=== PATIENT | female | born 1960 | race African-American/Black ===

== ENCOUNTER 2022-04-30 16:09 | Emergency (ER) | payer MEDICAID, OTHER ==
[~2022-04-30] VITALS: Ht 167.6 cm; Wt 101.0 kg
[2022-04-30 16:18] VITALS: BP 130/97
== END 2022-04-30 18:14 | disposition left against medical advice (07) ==
LOC: ER 16:09
DX: Z53.21 Procedure and treatment not carried out due to patient leaving prior to being seen by health care provider (principal)